=== PATIENT | female | born 1980 | race Caucasian/White ===

== ENCOUNTER 2017-06-26 14:04 | Outpatient (CLI) | payer OTHER | END 2017-06-26 14:05 | disposition home or self-care (01) | LOC: BICMRI 14:04 | PROVIDERS: ATTEND Family Medicine | DX: S93.411D Sprain of calcaneofibular ligament of right ankle, subsequent encounter (principal) ==

== ENCOUNTER 2018-07-10 07:23 | Outpatient (CLI) | payer OTHER ==
--- NOTE | 2018-07-10 12:06 | MRI ---
MRI OF THE RIGHT ANKLE: Date: 07/10/18 PROVIDED CLINICAL HISTORY: Right ankle sprain. FINDINGS: Comparison is made with the examination performed 06/26/17. The anterior extensor, medial flexor, peroneal, and Achilles tendons demonstrate an intact MR appeara nce. Indistinct and hyperintense appearance to the anterior talofibular and calcaneofibular ligaments. Thi s appears similar to the prior examination. No regional joint effusion is evident. Tibiotalar articular cartilage appears preserved. Alignment ap pears anatomic. Joint spaces appear preserved. No focal concerning regional marrow or muscular signal abnormality is evident. The courses of the regional major neurovascular structures appear unremarkable. The plantar aponeuros is appears normal. There is preservation of the normal fat signal intensity within the tarsal sinus. IMPRESSION: No definite evidence for an acute process. Somewhat poorly defined and hyperintense appearance to the anterior talofibular and calcaneofibular ligaments, similar to the prior examination and suggesting prior partial tears. POS: [facility]
== END 2018-07-10 07:24 | disposition home or self-care (01) ==
LOC: SCSMRI 07:23
PROVIDERS: ATTEND Chiropractor
DX: S93.401A Sprain of unspecified ligament of right ankle, initial encounter (principal)